=== PATIENT | female | born 1965 | race Caucasian/White ===

== ENCOUNTER 2022-07-15 11:32 | Emergency (ER) | payer OTHER, SELFPAY ==
--- NOTE | ~2022-07-15 | XR_ITS ---
EXAMINATION: XR ANKLE, LEFT CLINICAL INFORMATION: Twisted ankle COMPARISON: None TECHNIQUE: AP, lateral, and mortise views of the left ankle. FINDINGS: There is an essentially nondisplaced fracture of the posterior malleolus. Ankle mortise appears intact. Soft tissue swelling is present. Calcaneal spurs sites of insertion of Achilles and plantar tendons noted. Visualized Joint spaces are maintained. XR/XR ankle LT min 3V IMPRESSION: Posterior malleolar fracture. Calcaneal spurs.
[2022-07-15 11:32] VITALS: BP 156/93; PULSE 92; RESP 18; TEMP 36.6; O2SAT 98; BMI 32.2
--- NOTE | 2022-07-15 13:05 | ED.LOWEXIN ---
HPI - Extremity Injury (Lower) General Chief Complaint: Extremity Injury, Lower Stated Complaint: L ankle inj Time Seen by Provider: 07/15/22 13:05 Source: patient Mode of arrival: ambulatory Limitations: no limitations History of Present Illness HPI Narrative: Patient presents emergency department for evaluation of left ankle pain. She states last night when going to step out door she missed a step and subsequently inverted her foot. Initially noticed some pain but upon awakening today pain was much more severe. Made worse with weight-bearing and ambulating. Has trialed ibuprofen with minimal relief. Denies any numbness or tingling to the foot. States her sensation is intact. Denies any obvious deformity. Denies prior injury to this foot/ankle in the past. Related Data Previous Rx's Medication Instructions Recorded oxycodone 5 mg tablet 5 mg PO Q8H PRN pain #10 tabs 07/15/22 Allergies Allergy/AdvReac Type Severity Reaction Status Date / Time No Known Allergies Allergy Unverified 08/04/20 17:09 Review of Systems Review of Systems: Musculoskeletal: Positive ankle pain Yes all other systems are reviewed and are negative [facility] Past Medical History Attestation statement: The following information was validated with the patient. Source: old records reviewed Social History Social History Advance Directives: Yes Advance Directives Information Provided: Yes Advance Directives on File: No Physical Exam Vital Signs: Vital Signs: Last Vital Signs Temp 98 F 07/15/22 11:32 Pulse 92 07/15/22 11:32 Resp 18 07/15/22 11:32 BP 156/93 H 07/15/22 11:32 Pulse Ox 98 07/15/22 11:32 O2 Del Method 07/15/22 11:32 BMI result Body Mass Index 32.2 Appearance: Alert.?Oriented to person, place and time. No acute distress.?Normal affect. Eyes: Pupils equal, round and reactive to light.? ENT: Pharynx normal.?? Neck: Normal inspection.? Neck supple.?? CVS: Heart sounds normal. Normal heart rate and rhythm.? Pulses normal.?? Respiratory: No respiratory distress.? Lung sounds clear to auscultation bilaterally?? Abdomen: Soft and non-tender. Skin: Skin warm and dry.? Normal skin color.? Normal skin turgor.?? Extremities: No lower extremity edema.? No calf ttp. Palpable 2+ DP/PT pulse bilaterally. CMS intact. ? Neuro: Moves all extremities spontaneously. Sensation intact bilaterally. No motor deficits Ambulates with antalgic gait Course Course Course Narrative: Patient is a 56 old female who presents to the emergency department for evaluation of left ankle pain after inversion injury, mechanical. Left lower extremity he is neurovascularly intact distally. XR reveals a posterior malleolar fracture. Patient placed in posterior short-leg splint splint and stirrup splint. Discussed nonweightbearing, provided with crutches and instructed on appropriate usage. Advised use of Ibuprofen and oxycodone for severe pain, prescriptions sent to patient's pharmacy. Advised outpatient follow-up with orthopedic office, provided with contact information. Reviewed worrisome signs and symptoms that she should return back to the emergency department for. All questions were answered, and patient was discharged home in stable condition. MDM - Extremity Injury (Lower) Medical Records Attestation: I reviewed the patient's medical records. Imaging Data XR ankle: Radiologist's impression: XR/XR ankle LT min 3V IMPRESSION: Posterior malleolar fracture. ? Calcaneal spurs. Discharge Plan Discharge Clinical Impression: Left malleolar fracture Patient Disposition: Home, Self-Care Instructions: Ankle Fracture (ED) Additional Instructions: As we discussed, you have a fracture to your ankle. You have been placed in a splint, this cannot get wet. You can take ibuprofen 200 mg, 3 tablets (600mg) every 6-8 hours as needed for pain, in addition to Tylenol 500 mg, 2 tablets (1,000mg) every 4-6 hours as needed for pain, but not to exceed 3 doses daily (3,000mg).? You have also been given a prescription for oxycodone to take as needed for severe pain, this is a narcotic medication, it can be addictive, you should use this with caution. It may make you constipated so please be sure to drink plenty of water. Additionally it can make you drowsy, so do not drive, go to work, or drink alcohol while taking this medication. You have been given crutches, you cannot put any weight on your left foot. Please contact the orthopedic office with the number provided to arrange for a follow-up visit. Please feel free to return to emergency department with any new or worsening symptoms or concerns Prescriptions: New oxycodone 5 mg tablet 5 mg PO Q8H PRN (Reason: pain) Qty: 10 0RF Rx Instructions: Partial Fill upon patient request. Interventions: ED Discharge Assessment Last Done: 07/15/22 14:13 Discharge Date/Time: 07/15/22 14:15
== END 2022-07-15 14:15 | disposition home or self-care (01) ==
PROVIDERS: Emergency Provider Emergency Medicine; PCP Nurse Practitioner Family
DX: S82.892A Other fracture of left lower leg, initial encounter for closed fracture (principal); W10.9XXA Fall (on) (from) unspecified stairs and steps, initial encounter; Y93.9 Activity, unspecified; Y92.9 Unspecified place or not applicable; Y99.9 Unspecified external cause status
CPT/HCPCS: 29515; 73610; 99282; 99283

== ENCOUNTER → 2022-07-19 09:28 | Outpatient (BNVA) | payer OTHER, SELFPAY | PROVIDERS: PCP Nurse Practitioner Family; Visit Provider Physician Assistant | DX: S82.892A Other fracture of left lower leg, initial encounter for closed fracture (principal) | CPT/HCPCS: 29405; 99202 ==

== ENCOUNTER 2022-08-16 16:28 | Outpatient (REF) | payer OTHER, SELFPAY ==
--- NOTE | ~2022-08-16 | XR_ITS ---
EXAMINATION: XR ANKLE, LEFT CLINICAL INFORMATION: Pain. COMPARISON: Radiographs dated 07/15/2022. TECHNIQUE: AP, lateral, and mortise views of the left ankle. FINDINGS: Bony alignment and mineralization are normal. No fracture, dislocation or left ankle joint effusion is seen. Boehler's angle is normal. There are small posterior plantar calcaneal spur. No focal soft tissue swelling, gas or foreign body is seen. XR/XR ankle LT min 3V IMPRESSION: 1. No left ankle fracture, dislocation or joint effusion is seen. 2. There are small left calcaneal posterior plantar spurs.
== END 2022-08-16 16:29 | disposition home or self-care (01) ==
LOC: HO.HOSX 16:28
PROVIDERS: Visit Provider Physician Assistant
DX: S82.892A Other fracture of left lower leg, initial encounter for closed fracture (principal)
CPT/HCPCS: 73610; 99212

== ENCOUNTER 2022-09-12 | Outpatient (REF) | payer OTHER, SELFPAY ==
--- NOTE | ~2022-09-12 | XR_ITS ---
EXAMINATION:XR ankle LT min 3V CLINICAL INFORMATION: Pain COMPARISON: 08/16/2022 TECHNIQUE: AP, lateral, and mortise views of the ankle. FINDINGS: There is a small tiny osseous structure posterior to the distal tibia measure roughly 4 mm could be an accessory ossicle versus chip fracture.. Ankle mortise is preserved. Tibial plafond and talar dome are intact. Medial and lateral malleoli are properly aligned. Subtalar joint is normal. There is no osteolytic or osteoblastic lesions. There are small posterior and inferior calcaneal spurs. XR/XR ankle LT min 3V IMPRESSION: 1. Tiny osseous structure posterior to the distal tibia could be an accessory ossicle versus chip fracture. Please correlate with the area of tenderness. 2. Small posterior and inferior calcaneal spurs.
== END 2022-09-12 00:01 | disposition home or self-care (01) ==
LOC: HO.HOSX
PROVIDERS: Visit Provider Physician Assistant
DX: M25.572 Pain in left ankle and joints of left foot (principal)
CPT/HCPCS: 73610

== ENCOUNTER → 2022-09-12 07:53 | Outpatient (BNVA) | payer OTHER, SELFPAY | PROVIDERS: PCP Nurse Practitioner Family; Visit Provider Physician Assistant | DX: S82.892D Other fracture of left lower leg, subsequent encounter for closed fracture with routine healing (principal) | CPT/HCPCS: 99212 ==

== ENCOUNTER 2022-10-16 14:00 | Outpatient (RCR) | payer OTHER, SELFPAY ==
--- NOTE | 2022-09-18 15:31 | MHC.PT.EP ---
[facility] [place] [facility] [place] [facility] [place] [facility] [address] Skye Brown [address] [phone] F: [phone] F: [phone] F: [phone] F: [phone] Physical Therapy Plan of Care Date of Evaluation: Date of Surgery: N/A Diagnosis: L posterior malleolar fx (RC) Assessment: pt is a 57 y/o female presenting to physical therapy w/ referring diagnosis of other fracture of left lower leg, initial encounter for closed fracture. Impairments include pain, decreased range of motion, decreased strength, impaired functional mobility, impaired postural awareness, and altered ambulation mechanics. pt is a good candidate for skilled PT due to age, potential remediation of impairments, typical disease/condition progression and prognosis, comorbidities, and motivation. pt would benefit from skilled PT intervention to provide a tailored strengthening and stretching exercise program, functional training, gait training, postural re-training, neuromuscular re-education, modalities as needed for pain, equipment safety demonstration. Frequency and Duration: The patient will be seen 2x/wk for 4 wks Short Term Goals: pt will be I w/ HEP to promote self-management of condition. pt will improve L ankle dorsiflexion to 10 degrees to normalize gait pattern on even ground. [employer] Goals: pt will ascend/descend 12 stairs using reciprocal pattern to promote ease in accessing her primary living space. pt will report a statistically significant improvement in self-reported outcome measure, LEFI, to promote return to PLOF. Treatment Plan: Modalities to reduce pain, spasms and effusion. Manual therapy to restore motion and function. Therapeutic exercise to improve strength and flexibility. Neuromuscular re-education for posture and balance. Therapeutic activities to return to functional activities of daily living. Electronically signed by: Perla Martin PT, DPT Please sign and return to therapist. Thank you for your referral.
--- NOTE | 2022-10-17 18:10 | MHC.PT.DC ---
[facility] [place] [facility] [place] [facility] [place] [facility] [address] Skye Brown [address] [phone] F: [phone] F: [phone] F: [phone] F: [phone] Physical Therapy Discharge Report Diagnosis: L posterior malleolar fx (RC) Date of Surgery: N/A Date of Evaluation: 09/18/22 Date of Discharge: 10/17/22 Treatments to Date: 6 Cancellations to Date: 3 No Shows to Date: 0 Discharge Status: Improved Function Independent with HEP Patient Elected to Stop Discharge Summary: The patient overall feels a significant improvement in her pain severity and frequency. The patient has discharged her brace as she feels she does not need it anymore. She has nearly returned to all activities without any discomfort at all. She trialed jogging in the office today with no pain reported. She is independent with all of her home exercise program. She would like today to be her last visit so she is discharged from this physical therapy plan of care per her request. Electronically signed by: Perla Martin PT, DPT Please sign and return to therapist. Thank you for your referral.
== END 2022-10-17 18:10 | disposition home or self-care (01) ==
LOC: HO.PT 14:00
PROVIDERS: PCP Nurse Practitioner Family; Visit Provider Physician Assistant
DX: S82.892D Other fracture of left lower leg, subsequent encounter for closed fracture with routine healing (principal)
CPT/HCPCS: 97110; 97112; 97162; 97530